=== PATIENT | female | born 1985 | race African-American/Black ===

== ENCOUNTER 2017-04-24 14:37 | Emergency (ER) | payer MEDICAID ==
[~2017-04-24] VITALS: Ht 165.1 cm; Wt 57.0 kg
[2017-04-24 14:58] VITALS: BP 117/77
== END 2017-04-24 17:48 | disposition left against medical advice (07) ==
LOC: ER 15:23
DX: Z04.8 Encounter for examination and observation for other specified reasons (principal); Z53.21 Procedure and treatment not carried out due to patient leaving prior to being seen by health care provider

== ENCOUNTER 2018-08-11 04:26 | Emergency (ER) | payer MEDICAID ==
[~2018-08-11] VITALS: Ht 165.1 cm; Wt 61.0 kg
[2018-08-11 04:33] VITALS: BP 133/92
== END 2018-08-11 08:46 | disposition left against medical advice (07) ==
LOC: ER 04:26
DX: R07.0 Pain in throat (principal); Z53.21 Procedure and treatment not carried out due to patient leaving prior to being seen by health care provider

== ENCOUNTER 2018-08-13 08:13 | Emergency (ER) | payer MEDICAID | END 2018-08-13 09:42 | disposition left against medical advice (07) | LOC: ER 08:24 | DX: M54.2 Cervicalgia (principal); R07.0 Pain in throat; Z53.21 Procedure and treatment not carried out due to patient leaving prior to being seen by health care provider ==

== ENCOUNTER 2018-08-13 17:13 | Emergency (ER) | payer MEDICAID ==
[~2018-08-13] VITALS: Ht 165.1 cm; Wt 61.0 kg
[2018-08-13 18:39] VITALS: BP 126/66
== END 2018-08-13 20:30 | disposition left against medical advice (07) ==
LOC: ER 17:55
DX: R05 Cough (principal); R06.02 Shortness of breath; Z53.21 Procedure and treatment not carried out due to patient leaving prior to being seen by health care provider